=== PATIENT | female | born 1940 | race Caucasian/White ===

== ENCOUNTER 2017-08-11 20:11 | Inpatient (IN) | payer MEDICARE, OTHER ==
[~2017-08-11] VITALS: Ht 162.6 cm; Wt 69.5 kg
[2017-08-11 20:34] VITALS: BP 122/95; PULSE 107; RESP 22; TEMP 98.1; O2SAT 96
[2017-08-11] MEDS ORDERED: AMLO5TAB2 PO (22:06)
[2017-08-11] MEDS ORDERED: OXYC-395 PO (22:06)
[2017-08-11] MEDS ORDERED: METO25TA3 PO (22:06)
[2017-08-11] MEDS ORDERED: AMOX875T PO (22:06)
[2017-08-11] MEDS ORDERED: VENL75TA PO (22:06)
[2017-08-11] MEDS ORDERED: OMEP40CA2 PO (22:06)
[2017-08-11] MEDS ORDERED: CLOP75TA PO (22:06)
[2017-08-11] MEDS ORDERED: ERYT1SUS5 PO (22:06)
[2017-08-11] MEDS ORDERED: ATOR40TA16 PO (22:06)
[2017-08-11] MEDS ORDERED: ACETAMINOPHEN 500 MG CPLT PO ONE (22:30)
[2017-08-11 23:25] LABS: AUTOMATED NEUTROPHIL # 5.4 TH/MM3 (1.8-7.7); BASOPHIL # 0.1 TH/MM3 (0-0.2); BASOPHIL % 0.7 % (0.0-2.0); EOSINOPHIL % 0.5 % (0.0-4.0); HEMATOCRIT 45.2 % (35.0-46.0); HEMOGLOBIN 15.3 GM/DL (11.6-15.3); LYMPH % 25.7 % (9.0-44.0); LYMPHOCYTE # 2.2 TH/MM3 (1.0-4.8); MEAN CELL VOLUME 92.8 FL (80.0-100.0); MEAN CORPUSCULAR HEMOGLOBIN 31.3 PG (27.0-34.0); MEAN CORPUSCULAR HGB CONC 33.8 % (32.0-36.0); MEAN PLATELET VOLUME 8.7 FL (7.0-11.0); MONO % 9.7 % (0.0-8.0); MONOCYTE # 0.8 TH/MM3 (0-0.9); NEUT % 63.4 % (16.0-70.0); PLATELET COUNT 243 TH/MM3 (150-450); RED BLOOD COUNT 4.87 MIL/MM3 (4.00-5.30); WHITE BLOOD COUNT 8.6 TH/MM3 (4.0-11.0)
[2017-08-11 23:49] LABS: ALKALINE PHOSPHATASE 108 U/L (45-117); TOTAL BILIRUBIN ADULT 0.3 MG/DL (0.2-1.0); TOTAL PROTEIN 7.3 GM/DL (6.4-8.2)
[2017-08-12] LABS: ALBUMIN 3.8 GM/DL (3.4-5.0); ALT (GPT) 26 U/L (10-53); AST (GOT) 16 U/L (15-37); BICARBONATE 26.5 MEQ/L (21.0-32.0); BLOOD UREA NITROGEN 7 MG/DL (7-18); CALCIUM 8.6 MG/DL (8.5-10.1); CHLORIDE 106 MEQ/L (98-107); CREATININE 0.89 MG/DL (0.50-1.00); GLOMERULAR FILTRATION RATE 62 ML/MIN (>89); GLUCOSE,RANDOM 82 MG/DL (74-106); SODIUM (NA) 140 MEQ/L (136-145)
--- NOTE | 2017-08-12 00:10 | PD ---
HPI Chief Complaint: Psychiatric Symptoms Time Seen by Provider: 22:06 Travel History International Travel<30 days: No Contact w/Intl Traveler<30days: No Traveled to known affect area: No History of Present Illness HPI 76-year-old female arrives with family members due to depression for the past year or so however it has become much worse over the past week or so. Patient attempted to drive the car over the bridge however was unsuccessful. Patient denies drug and alcohol abuse. She reports feeling extra depressed after a double mastectomy with subsequent loss of her dentition. Additional complaints include financial stress and if she is involving the family. Patient has been taking Effexor evidently with no significant benefit. PFSH Past Medical History Atrial Fibrillation: Yes Anxiety: Yes High Cholesterol: Yes Diminished Hearing: Yes ([place] bilat) Diverticulitis: Yes Hypertension: Yes Tetanus Vaccination: Unknown Influenza Vaccination: Yes Past Surgical History Abdominal Surgery: Yes (colon resection ) Appendectomy: Yes Cholecystectomy: Yes Hysterectomy: Yes Joint Replacement: Yes (rt knee) Mastectomy: Yes (bilat) Tonsillectomy: Yes Social History Alcohol Use: No Tobacco Use: No Substance Use: No Allergies-Medications (Allergen,Severity, Reaction): Coded Allergies: No Known Allergies (Unverified , 08/11/17) Reported Meds & Prescriptions Reported Meds & Active Scripts Active Reported Amoxicillin 875 Mg Tab 875 Mg PO BID Erythromycin Ethylsuccinate Liq (Erythromycin Ethylsuccinate) 200 Mg/Ml Susp 250 Mg PO BID Metoprolol Tartrate 25 Mg Tab 25 Mg PO BID Clopidogrel (Clopidogrel Bisulfate) 75 Mg Tab 75 Mg PO DAILY Oxycodone (Oxycodone HCl) 10 Mg Tab 10 Mg PO Q4H PRN Amlodipine (Amlodipine Besylate) 5 Mg Tab 5 Mg PO DAILY Effexor (Venlafaxine HCl) 75 Mg Tab 75 Mg PO DAILY Atorvastatin (Atorvastatin Calcium) 40 Mg Tab 40 Mg PO HS Omeprazole 40 Mg Cap 40 Mg PO DAILY Review of Systems Except as stated in HPI: all other systems reviewed are Neg General / Constitutional: No: Fever Physical Exam Narrative GENERAL: 76-year-old female well-nourished well-developed tearful Vital Signs Date Time Temp Pulse Resp B/P (MAP) Pulse Ox O2 Delivery O2 Flow Rate FiO2 08/11/17 20:34 98.1 107 22 122/95 (104) 96 SKIN: Warm and dry. HEAD: Atraumatic. Normocephalic. EYES: Pupils equal and round. No scleral icterus. No injection or drainage. ENT: No nasal bleeding or discharge. Mucous membranes pink and moist. NECK: Trachea midline. No JVD. CARDIOVASCULAR: Regular rate and rhythm. RESPIRATORY: No accessory muscle use. Clear to auscultation. Breath sounds equal bilaterally. GASTROINTESTINAL: Abdomen soft, non-tender, nondistended. Hepatic and splenic margins not palpable. MUSCULOSKELETAL: Extremities without clubbing, cyanosis, or edema. No obvious deformities. NEUROLOGICAL: Awake and alert. No obvious cranial nerve deficits. Motor grossly within normal limits. Five out of 5 muscle strength in the arms and legs. Normal speech. PSYCHIATRIC: Patient reports suicidal ideation. No homicidal ideation. Tearful at the time of ED evaluation. Data Data Last Documented VS Vital Signs Date Time Temp Pulse Resp B/P (MAP) Pulse Ox O2 Delivery O2 Flow Rate FiO2 08/11/17 20:34 98.1 107 22 122/95 (104) 96 Orders Orders Complete Blood Count With Diff (08/11/17 22:23) Comprehensive Metabolic Panel (08/11/17 22:23) Thyroid Stimulating Hormone (08/11/17 22:23) Psych Screen (08/11/17 22:23) Drug Screen, Random Urine (08/11/17 22:23) Alcohol (Ethanol) (08/11/17 22:23) Acetaminophen (Tylenol) (08/11/17 22:30) Labs Laboratory Tests Test 08/11/17 22:52 White Blood Count 8.6 TH/MM3 Red Blood Count 4.87 MIL/MM3 Hemoglobin 15.3 GM/DL Hematocrit 45.2 % Mean Corpuscular Volume 92.8 FL Mean Corpuscular Hemoglobin 31.3 PG Mean Corpuscular Hemoglobin Concent 33.8 % Red Cell Distribution Width 14.0 % Platelet Count 243 TH/MM3 Mean Platelet Volume 8.7 FL Neutrophils (%) (Auto) 63.4 % Lymphocytes (%) (Auto) 25.7 % Monocytes (%) (Auto) 9.7 % Eosinophils (%) (Auto) 0.5 % Basophils (%) (Auto) 0.7 % Neutrophils # (Auto) 5.4 TH/MM3 Lymphocytes # (Auto) 2.2 TH/MM3 Monocytes # (Auto) 0.8 TH/MM3 Eosinophils # (Auto) 0.0 TH/MM3 Basophils # (Auto) 0.1 TH/MM3 CBC Comment DIFF FINAL Differential Comment Blood Urea Nitrogen 7 MG/DL Creatinine 0.89 MG/DL Random Glucose 82 MG/DL Total Protein 7.3 GM/DL Albumin 3.8 GM/DL Calcium Level 8.6 MG/DL Alkaline Phosphatase 108 U/L Aspartate Amino Transf (AST/SGOT) 16 U/L Alanine Aminotransferase (ALT/SGPT) 26 U/L Total Bilirubin 0.3 MG/DL Sodium Level 140 MEQ/L Potassium Level 4.2 MEQ/L Chloride Level 106 MEQ/L Carbon Dioxide Level 26.5 MEQ/L Anion Gap 8 MEQ/L Estimat Glomerular Filtration Rate 62 ML/MIN Thyroid Stimulating Hormone 3rd Gen 1.720 uIU/ML Urine Opiates Screen NEG Urine Barbiturates Screen NEG Urine Amphetamines Screen NEG Urine Benzodiazepines Screen POS Urine Cocaine Screen NEG Urine Cannabinoids Screen POS Ethyl Alcohol Level LESS THAN 3 MG/DL MDM Medical Decision Making Medical Screen Exam Complete: Yes Emergency Medical Condition: Yes Differential Diagnosis Altered mental status/psychosis due to infection/environmental exposure/ metabolic abnormality, polypharmacy, alcohol abuse/intoxication, illicit or prescribed drug abuse, malingering/secondary gain, non-organic psychiatric disease Narrative Course CBC & BMP Diagram 08/11/17 22:52 Total Protein 7.3, Albumin 3.8, Calcium Level 8.6, Alkaline Phosphatase 108, Aspartate Amino Transf (AST/SGOT) 16, Alanine Aminotransferase (ALT/SGPT) 26, Total Bilirubin 0.3 TSH normal Utox + cannabinoids, + benzodiazepine EtOH < 3 Pt medically clear for psychiatry evaluation. Diagnosis Primary Impression: Major depression Qualified Codes: F33.2 - Major depressive disorder, recurrent severe without psychotic features Additional Impression: Suicidal ideation Montez Castellanos MD Aug 12, 2017 00:10
[2017-08-12 02:35] VITALS: BP 130/92; PULSE 90; RESP 16; O2SAT 98
[2017-08-12 07:25] VITALS: BP 138/78; PULSE 100; RESP 17; O2SAT 96
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
[2017-08-12] MEDS ORDERED: MAGNESIUM HYDROXIDE SUSP 30 ML CUP PO PRN (12:45)
[2017-08-12] MEDS ORDERED: ALUMINUM/MAGNESIUM/SIMETH 30 ML CUP PO PRN (12:45)
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
[2017-08-12 17:10] VITALS: BP 168/97; PULSE 113; O2SAT 96
[2017-08-12] MEDS: ACETAMINOPHEN 325 MG TAB PO PRN (17:32)
[2017-08-12] MEDS: ATORVASTATIN 40 MG TAB PO SCH (21:52)
[2017-08-12] MEDS: METOPROLOL TARTRATE 25 MG TAB PO SCH (21:52)
[2017-08-12] MEDS: MIRTAZAPINE 15 MG TAB PO SCH (21:52)
[2017-08-13 05:51] VITALS: BP 139/70; PULSE 64; RESP 16; TEMP 97.4; O2SAT 96
--- NOTE | 2017-08-13 08:53 | PD.CONS ---
[facility] By [facility] Babb Reason for Consult Medical management Primary Care Physician Rodrick Chawla D.O. Diagnoses: History of Present Illness 76-year-old female hard of hearing past medical history of HTN/ CAD, hyperlipidemia, GERD arrives with family members due to depression for the past year or so however it has become much worse over the past week or so. Patient attempted to drive the car over the bridge however was unsuccessful. Patient denies drug and alcohol abuse. She reports feeling extra depressed after a double mastectomy with subsequent loss of her dentition. Additional complaints include financial stress and if she is involving the family. Patient has been taking Effexor evidently with no significant benefit. Review of Systems Except as stated in HPI: all other systems reviewed are Neg Past Family Social History Allergies: Coded Allergies: No Known Allergies (Unverified , 08/11/17) Past Medical History Hypertension/CAD Hyperlipidemia GERD Past Surgical History Colon resection Appendectomy Cholecystectomy Rt knee surgery Bilat mastectomy Tonsillectomy Reported Medications Reported Meds & Active Scripts Active Reported Amoxicillin 875 Mg Tab 875 Mg PO BID Erythromycin Ethylsuccinate Liq (Erythromycin Ethylsuccinate) 200 Mg/Ml Susp 250 Mg PO BID Metoprolol Tartrate 25 Mg Tab 25 Mg PO BID Clopidogrel (Clopidogrel Bisulfate) 75 Mg Tab 75 Mg PO DAILY Oxycodone (Oxycodone HCl) 10 Mg Tab 10 Mg PO Q4H PRN Amlodipine (Amlodipine Besylate) 5 Mg Tab 5 Mg PO DAILY Effexor (Venlafaxine HCl) 75 Mg Tab 75 Mg PO DAILY Atorvastatin (Atorvastatin Calcium) 40 Mg Tab 40 Mg PO HS Omeprazole 40 Mg Cap 40 Mg PO DAILY Family History Family is healthy Social History Alcohol Use: No Tobacco Use: No Substance Use: No Physical Exam Vital Signs Vital Signs Date Time Temp Pulse Resp B/P (MAP) Pulse Ox O2 Delivery O2 Flow Rate FiO2 08/13/17 05:51 97.4 64 16 139/70 (93) 96 08/12/17 20:21 16 08/12/17 17:10 113 168/97 (120) 96 Physical Exam GENERAL: This is a well-nourished, well-developed patient, in no apparent distress. SKIN: No rashes, ecchymoses or lesions. Cool and dry. HEAD: Atraumatic. Normocephalic. No temporal or scalp tenderness. EYES: Pupils equal round and reactive. Extraocular motions intact. No scleral icterus. No injection or drainage. ENT: Nose without bleeding, purulent drainage or septal hematoma. Throat without erythema, tonsillar hypertrophy or exudate. Uvula midline. Airway patent. NECK: Trachea midline. No JVD or lymphadenopathy. Supple, nontender, no meningeal signs. CARDIOVASCULAR: Regular rate and rhythm without murmurs, gallops, or rubs. RESPIRATORY: Clear to auscultation. Breath sounds equal bilaterally. No wheezes , rales, or rhonchi. GASTROINTESTINAL: Abdomen soft, non-tender, nondistended. No hepato-splenomegaly , or palpable masses. No guarding. MUSCULOSKELETAL: Extremities without clubbing, cyanosis, or edema. No joint tenderness, effusion, or edema noted. No calf tenderness. Negative Homans sign bilaterally. NEUROLOGICAL: Awake and alert. Cranial nerves II through XII intact. Motor and sensory grossly within normal limits. Five out of 5 muscle strength in all muscle groups. Normal speech. Result Diagram: 08/11/17225108/11/172251 Assessment and Plan Assessment and Plan Major depression/ Suicidal ideation . Management per psychiatry Chronic medical problems. Stable at this time. Monitor. Restart home medications as appropriate. Hypertension/CAD Hyperlipidemia GERD Continue metoprolol, amlodipine, statin, Plavix. Monitor VS. BP was elevated eysterday however home emds restarted patient BP is controlled today. Monitor closely and adjust meds if need. TSH on admission normal Utox + cannabinoids, + benzodiazepine EtOH < 3 appears stable at this time. Thank you for this consultation The hospitalist will sign off. Please reconsult as need. Discussed Condition With pt, nurse Rhonda Brock MD Aug 13, 2017 08:53
[2017-08-13] MEDS: CLOPIDOGREL 75 MG TAB PO SCH (09:00)
[2017-08-13] MEDS: PANTOPRAZOLE SOD 40 MG DELAYED RELEASE TAB PO SCH (09:00)
[2017-08-13] MEDS: METOPROLOL TARTRATE 25 MG TAB PO SCH ×2 (09:00→21:12)
[2017-08-13] MEDS: amLODIPine BESYLATE 5 MG TAB PO SCH (09:00)
[2017-08-13 12:36] LABS: BICARBONATE 22.6 MEQ/L (21.0-32.0); BLOOD UREA NITROGEN 10 MG/DL (7-18); CALCIUM 9.8 MG/DL (8.5-10.1); CHLORIDE 103 MEQ/L (98-107); CHOLESTEROL 238 MG/DL (120-200); CHOLESTEROL/ HDL RATIO 3.18 RATIO; CREATININE 1.22 MG/DL (0.50-1.00); GLOMERULAR FILTRATION RATE 43 ML/MIN (>89); GLUCOSE,RANDOM 117 MG/DL (74-106); HDL CHOLESTEROL 74.8 MG/DL (40.0-60.0); LDL CHOLESTEROL 125 MG/DL (0-99); SODIUM (NA) 137 MEQ/L (136-145); TRIGLYCERIDES 193 MG/DL (42-150)
--- NOTE | 2017-08-13 13:27 | HHI.PYPN ---
Subjective Chief Complaint: Depression, suicidal ideation Remarks Patient was seen and case discussed with nursing. Patient remains depressed and labile. She is tearful during the interview. She is complaining of racing thoughts throughout the day. She feels hopeless but denies active suicidal ideation intent or plan. Protective factors include her grandchildren. Tolerating medications well Mental Status Examination Appearance: Appropriate Consciousness: Alert Orientation: x4 Motor Activity: Other (No motor abnormalities noted) Speech: Unremarkable Language: Adequate Fund of Knowledge: Adequate Attention and Concentration: Adequate Memory: Unremarkable Mood: Sad Affect: Other (Tearful) Thought Process & Associations: Intact, Logical, Goal directed Thought Content: Appropriate Hallucination Type: None Delusion Type: None Suicidal Ideation: Yes Suicidal Plan: Yes (Drive her car into the river) Suicidal Intention: No (No reported urge to hurt self on an inpatient unit) Homicidal Ideation: No Homicidal Plan: No Homicidal Intention: No Insight: Adequate Judgment: Adequate Results Labs Test 08/13/17 09:45 Blood Urea Nitrogen 10 MG/DL Creatinine 1.22 MG/DL Random Glucose 117 MG/DL Calcium Level 9.8 MG/DL Sodium Level 137 MEQ/L Potassium Level 3.6 MEQ/L Chloride Level 103 MEQ/L Carbon Dioxide Level 22.6 MEQ/L Anion Gap 11 MEQ/L Estimat Glomerular Filtration Rate 43 ML/MIN Triglycerides Level 193 MG/DL Cholesterol Level 238 MG/DL LDL Cholesterol 125 MG/DL HDL Cholesterol 74.8 MG/DL Cholesterol/HDL Ratio 3.18 RATIO Vitamin B12 Level 368 PG/ML 25-Hydroxy Vitamin D Total LESS THAN 4.2 ng/ML Vitals/IOs Vital Signs Date Time Temp Pulse Resp B/P (MAP) Pulse Ox O2 Delivery O2 Flow Rate FiO2 08/13/17 05:51 97.4 64 16 139/70 (93) 96 08/12/17 02:35 Room Air Intake and Output 08/13/17 08/13/17 08/14/17 08:00 16:00 00:00 Intake Total 240 ml Balance 240 ml Assessment & Plan Problem List: (1) Major depression ICD Codes: F32.9 - Major depressive disorder, single episode, unspecified Status: Acute Assessment & Plan Continue current treatment plan Justification for Cont. Inpt. Patient would decompensate in a less restrictive setting Request HC Surrog/Guard Advoc?: No Problem Qualifiers (1) Major depression: Qualified Codes: F33.2 - Major depressive disorder, recurrent severe without psychotic features Emeka Bajwa DO Aug 13, 2017 13:27
[2017-08-13 13:41] LABS: HEMOGLOBIN A1C 5.5 % (4.3-6.0)
--- NOTE | 2017-08-13 18:04 | EKG ---
Date Performed: 08/12/2017 Time Performed: 13:26:08 PTAGE: 76 years EKG: Sinus rhythm NONSPECIFIC ST-T CHANGES, CANNOT EXCLUDE ISCHEMIA ABNORMAL ECG NO PREVIOUS TRACING DOCTOR: Ben Garcia Interpretating Date/Time 08/13/2017 18:04:00
--- NOTE | 2017-08-13 18:06 | EKG ---
Date Performed: 08/13/2017 Time Performed: 09:31:42 PTAGE: 76 years EKG: Sinus rhythm NONSPECIFIC ST-T WAVE CHANGES, CANNOT EXCLUDE ISCHEMIA Compared to previous tracing, the ST-T wave c hanges have improved inferiorly but worse in the anterior leads. There's also been a shift in axis wi th a decrease in R wave in the inferior leads. Clinical correlation is needed ABNORMAL ECG PREVIOUS TRACING : 08/12/2017 13.26 DOCTOR: Ben Garcia Interpretating Date/Time 08/13/2017 18:05:18
[2017-08-13 18:09] VITALS: BP 138/78; PULSE 80; RESP 18; TEMP 97.8; O2SAT 97
[2017-08-13] MEDS ORDERED: CALCIUM CARBONATE 500 MG CHEWABLE TAB CHEW PRN (20:15)
[2017-08-13] MEDS: ATORVASTATIN 40 MG TAB PO SCH (21:12)
[2017-08-13] MEDS: MIRTAZAPINE 15 MG TAB PO SCH (21:12)
[2017-08-14 06:13] VITALS: BP 121/71; PULSE 71; RESP 16; TEMP 98.4; O2SAT 94
[2017-08-14] MEDS: CLOPIDOGREL 75 MG TAB PO SCH (09:00)
[2017-08-14] MEDS: amLODIPine BESYLATE 5 MG TAB PO SCH (09:00)
[2017-08-14] MEDS: PANTOPRAZOLE SOD 40 MG DELAYED RELEASE TAB PO SCH (09:00)
[2017-08-14] MEDS: METOPROLOL TARTRATE 25 MG TAB PO SCH ×2 (09:00→20:36)
--- NOTE | 2017-08-14 10:56 | HHI.PR ---
Subjective Remarks Patient is in the chair she feels much better today. Says no nausea no vomiting she was able to eat and keep down food. Says her mood is better and she is thankful for talking with me this days. Denies chest pain or shortness of breath. She is ambulating without any problems. Objective Vitals Vital Signs Date Time Temp Pulse Resp B/P (MAP) Pulse Ox O2 Delivery O2 Flow Rate FiO2 08/14/17 06:13 98.4 71 16 121/71 (88) 94 08/13/17 18:09 97.8 80 18 138/78 (98) 97 I/O 08/13/17 08/13/17 08/13/17 08/14/17 08/14/17 08/14/17 07:00 15:00 23:00 07:00 15:00 23:00 Intake Total 240 ml Balance 240 ml Intake Oral 240 ml Result Diagram: 08/11/17 2252 08/13/17 0945 Objective Remarks GENERAL: This is a well-nourished, well-developed patient, in no apparent distress. CARDIOVASCULAR: Regular rate and rhythm without murmurs, gallops, or rubs. RESPIRATORY: Chest with bilateral mastectomy. Clear to auscultation. Breath sounds equal bilaterally. No wheezes, rales, or rhonchi. GASTROINTESTINAL: Abdomen soft, non-tender, nondistended. No hepato-splenomegaly , or palpable masses. No guarding. MUSCULOSKELETAL: Extremities without clubbing, cyanosis, or edema. No joint tenderness, effusion, or edema noted. No calf tenderness. Negative Homans sign bilaterally. NEUROLOGICAL: Awake and alert. Cranial nerves II through XII intact. Motor and sensory grossly within normal limits. Five out of 5 muscle strength in all muscle groups. Normal speech. A/P Assessment and Plan Major depression/ Suicidal ideation . Management per psychiatry. Chronic medical problems. Stable at this time. Monitor. Restart home medications as appropriate. Hypertension/CAD Hyperlipidemia GERD Continue metoprolol, amlodipine, statin, Plavix. Monitor VS. BP was elevated however home meds restarted patient BP is controlled today. Monitor closely and adjust meds if need. Was noted with nausea yesterday: Zofran prn, tums. Better improved today and able to eat. TSH on admission normal Utox + cannabinoids, + benzodiazepine EtOH < 3 appears stable at this time. Thank you for this consultation Discussed Condition With pt, nurse Rhonda Brock MD Aug 14, 2017 10:56
[2017-08-14] MEDS ORDERED: ONDANSETRON ODT 4 MG TAB PO PRN (11:00)
--- NOTE | 2017-08-14 11:09 | HHI.PYPN ---
Subjective Chief Complaint: Depression, suicidal ideation Remarks Patient was seen and case discussed with nursing. Patient notes an improvement in mood. She is getting out more of her room. She had a productive conversation with her family. She is now goal oriented. She attributes this to 2 days of medication and the milieu here. She notices she is no longer crying. She denies suicidal or homicidal ideation intent or plan Mental Status Examination Appearance: Appropriate Consciousness: Alert Orientation: x4 Motor Activity: Other (No motor abnormalities noted) Speech: Unremarkable Language: Adequate Fund of Knowledge: Adequate Attention and Concentration: Adequate Memory: Unremarkable Mood: Sad Affect: Appropriate Thought Process & Associations: Intact, Logical, Goal directed Thought Content: Appropriate Hallucination Type: None Delusion Type: None Suicidal Ideation: No Suicidal Plan: No Suicidal Intention: No (No reported urge to hurt self on an inpatient unit) Homicidal Ideation: No Homicidal Plan: No Homicidal Intention: No Insight: Adequate Judgment: Adequate Results Vitals/IOs Vital Signs Date Time Temp Pulse Resp B/P (MAP) Pulse Ox O2 Delivery O2 Flow Rate FiO2 08/14/17 06:13 98.4 71 16 121/71 (88) 94 08/12/17 02:35 Room Air Assessment & Plan Problem List: (1) Major depression ICD Codes: F32.9 - Major depressive disorder, single episode, unspecified Status: Acute Assessment & Plan Continue current treatment plan Justification for Cont. Inpt. Patient would decompensate in a less restrictive setting Request HC Surrog/Guard Advoc?: No Problem Qualifiers (1) Major depression: Qualified Codes: F33.2 - Major depressive disorder, recurrent severe without psychotic features Emeka Bajwa DO Aug 14, 2017 11:09
--- NOTE | 2017-08-14 13:10 | HHI.PR ---
Objective Vitals Vital Signs Date Time Temp Pulse Resp B/P (MAP) Pulse Ox O2 Delivery O2 Flow Rate FiO2 08/14/17 06:13 98.4 71 16 121/71 (88) 94 08/13/17 18:09 97.8 80 18 138/78 (98) 97 I/O 08/13/17 08/13/17 08/13/17 08/14/17 08/14/17 08/14/17 07:00 15:00 23:00 07:00 15:00 23:00 Intake Total 240 ml Balance 240 ml Intake Oral 240 ml Result Diagram: 08/11/17 2252 08/13/17 0945 Objective Remarks GENERAL: This is a well-nourished, well-developed patient, in no apparent distress. CARDIOVASCULAR: Regular rate and rhythm without murmurs, gallops, or rubs. RESPIRATORY: Chest with bilateral mastectomy. Clear to auscultation. Breath sounds equal bilaterally. No wheezes, rales, or rhonchi. GASTROINTESTINAL: Abdomen soft, non-tender, nondistended. No hepato-splenomegaly , or palpable masses. No guarding. MUSCULOSKELETAL: Extremities without clubbing, cyanosis, or edema. No joint tenderness, effusion, or edema noted. No calf tenderness. Negative Homans sign bilaterally. NEUROLOGICAL: Awake and alert. Cranial nerves II through XII intact. Motor and sensory grossly within normal limits. Five out of 5 muscle strength in all muscle groups. Normal speech. A/P Assessment and Plan Major depression/ Suicidal ideation. Management per psychiatry. Chronic medical problems. Stable at this time. Monitor. Restart home medications as appropriate. Hypertension/CAD Hyperlipidemia GERD Continue metoprolol, amlodipine, statin, Plavix. Monitor VS. BP was elevated however home meds restarted patient BP is controlled today. Monitor closely and adjust meds if need. Was noted with nausea yesterday: Zofran prn, tums. Better improved today and able to eat. TSH on admission normal Utox + cannabinoids, + benzodiazepine EtOH < 3 Thank you for this consultation Discussed Condition With pt, nurse Rhonda Brock MD Aug 14, 2017 13:10
[2017-08-14 18:07] VITALS: BP 126/83; PULSE 84; RESP 18; TEMP 98.2; O2SAT 96
[2017-08-14] MEDS: MIRTAZAPINE 15 MG TAB PO SCH (20:36)
[2017-08-14] MEDS: ATORVASTATIN 40 MG TAB PO SCH (20:36)
[2017-08-15] MEDS: MELATONIN 5 MG TAB PO PRN ×2 (01:42→21:00)
[2017-08-15] MEDS: hydrOXYzine HCL 25 MG TAB PO PRN ×2 (01:42→21:00)
[2017-08-15 05:59] VITALS: BP 129/78; PULSE 71; RESP 18; TEMP 97.8; O2SAT 95
[2017-08-15] MEDS: METOPROLOL TARTRATE 25 MG TAB PO SCH ×2 (09:43→21:01)
[2017-08-15] MEDS: amLODIPine BESYLATE 5 MG TAB PO SCH (09:43)
[2017-08-15] MEDS: PANTOPRAZOLE SOD 40 MG DELAYED RELEASE TAB PO SCH (09:43)
[2017-08-15] MEDS: CLOPIDOGREL 75 MG TAB PO SCH (09:43)
[2017-08-15] MEDS: ACETAMINOPHEN 325 MG TAB PO PRN (10:07)
[2017-08-15] MEDS ORDERED: ERGOCALCIFEROL (VIT D2) 50,000 UNIT CAP PO SCH (13:00)
--- NOTE | 2017-08-15 13:01 | HHI.PYPN ---
Subjective Chief Complaint: Depression, suicidal ideation Remarks Patient seen and examined with nurse. Chart reviewed. Case discussed with nursing staff. On my examination today, affect is considerably brighter versus before the weekend. She is enjoying the groups and unit activities. She continues to ruminate somewhat on her difficulties with her children. She does feel that she is improving overall. No SI or HI voiced. No side effects from medications. No acute physical complaints. Review of Systems Except as stated in HPI: all other systems reviewed are Neg Mental Status Examination Appearance: Appropriate Consciousness: Alert Orientation: x4 Motor Activity: Normal gait Speech: Unremarkable Language: Adequate Fund of Knowledge: Adequate Attention and Concentration: Adequate Memory: Unremarkable Mood: Sad (Improving) Affect: Appropriate Thought Process & Associations: Intact, Logical, Goal directed Thought Content: Appropriate Hallucination Type: None Delusion Type: None Suicidal Ideation: No Suicidal Plan: No Suicidal Intention: No Homicidal Ideation: No Homicidal Plan: No Homicidal Intention: No Insight: Adequate Judgment: Adequate Results Labs Labs reviewed. Markedly low vitamin D level noted. Vitals/IOs Vital Signs Date Time Temp Pulse Resp B/P (MAP) Pulse Ox O2 Delivery O2 Flow Rate FiO2 08/15/17 05:59 97.8 71 18 129/78 (95) 95 08/12/17 02:35 Room Air Assessment & Plan Problem List: (1) Major depression ICD Codes: F32.9 - Major depressive disorder, single episode, unspecified Status: Acute Assessment & Plan Continue Remeron as ordered. Patient believes dose is adequate for the time being. Vitamin D supplement. Hospitalist input noted and appreciated. Continue to monitor on the inpatient unit. Continue other medications and care as ordered. Justification for Cont. Inpt. Risk for decompensation Discharge Planning Anticipate discharge middle of the week Request HC Surrog/Guard Advoc?: No Problem Qualifiers (1) Major depression: Qualified Codes: F33.2 - Major depressive disorder, recurrent severe without psychotic features Dennis Babb MD Aug 15, 2017 13:01
[2017-08-15 17:13] VITALS: BP 131/75; PULSE 76; RESP 16; TEMP 98; O2SAT 96
[2017-08-15] MEDS: MIRTAZAPINE 15 MG TAB PO SCH (21:00)
[2017-08-15] MEDS: ATORVASTATIN 40 MG TAB PO SCH (21:00)
[2017-08-16 06:12] VITALS: BP 150/72; PULSE 75; RESP 18; TEMP 97.5; O2SAT 97
[2017-08-16] MEDS: METOPROLOL TARTRATE 25 MG TAB PO SCH (08:27)
[2017-08-16] MEDS: amLODIPine BESYLATE 5 MG TAB PO SCH (08:28)
[2017-08-16] MEDS: CLOPIDOGREL 75 MG TAB PO SCH (08:28)
[2017-08-16] MEDS: PANTOPRAZOLE SOD 40 MG DELAYED RELEASE TAB PO SCH (08:28)
[2017-08-16] MEDS: ACETAMINOPHEN 325 MG TAB PO PRN ×2 (08:48→15:43)
[2017-08-16] MEDS ORDERED: VITA500012 PO (11:56)
[2017-08-16] MEDS ORDERED: MIRTA15 PO (11:56)
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
--- NOTE | 2017-08-16 15:40 | PD.TTN ---
Patient Problems 1. Discharge planning 2. Medication compliance 3. Knowledge deficit 4. Lack of coping skills Progress Toward Goals Provider Present: Dr. Asher Babb Provider Input: /08/16/17 if patient has had a good night and remains doing well discharge with outpatient psychiatric follow up suggested for today Psychiatric Counselors Present: Gianna Adams LCSW Psych Therapist Input: 08/16/17 patient engages well, very social and motivated for therapy Group Spec/RT/OT/HERNANDEZ Present: JOSE Schumacher Group Spec/RT/OT/HERNANDEZ Input: 08/16/17 new to rec therapy motivated to engage Gianna Adams LCSW Aug 16, 2017 15:40
[2017-08-16 15:54] VITALS: BP 141/76; PULSE 76; RESP 19; TEMP 97.8; O2SAT 99
== END 2017-08-16 17:51 | disposition home or self-care (01) | DRG 885 ==
LOC: NEPD 20:11 → NEDA 08-12 13:06 → H260 08-12 14:00
PROVIDERS: ADMIT Psychiatry & Neurology Psychiatry; ATTEND Psychiatry & Neurology Psychiatry
DX: F33.2 Major depressive disorder, recurrent severe without psychotic features (principal); R45.851 Suicidal ideations; I10 Essential (primary) hypertension; F12.90 Cannabis use, unspecified, uncomplicated; F13.90 Sedative, hypnotic, or anxiolytic use, unspecified, uncomplicated; Z81.1 Family history of alcohol abuse and dependence; F33.40 Major depressive disorder, recurrent, in remission, unspecified; Z85.3 Personal history of malignant neoplasm of breast; Z96.651 Presence of right artificial knee joint; Z90.710 Acquired absence of both cervix and uterus; K21.9 Gastro-esophageal reflux disease without esophagitis; H91.93 Unspecified hearing loss, bilateral; E78.5 Hyperlipidemia, unspecified; F41.9 Anxiety disorder, unspecified; I25.10 Atherosclerotic heart disease of native coronary artery without angina pectoris; Z62.810 Personal history of physical and sexual abuse in childhood
CPT/HCPCS: 80048; 80053; 80061; 80307; 82306; 82607; 83036; 84443; 85025; 93005; 99285